=== PATIENT | male | born 1950 | race Caucasian/White ===

== ENCOUNTER 2017-01-17 11:13 | Inpatient (IN) | payer OTHER, MEDICARE ==
[~2017-01-17] VITALS: Ht 177.8 cm; Wt 99.1 kg
[~2017-01-17 11:13] MED LIST: ABILIFY 15MG15 MG PO; ABILIFY 2MG2 MG PO; ABILIFY 5MG5 MG PO; ADVAIR 500-501 EACH INH; ADVAIR DISKUS 21 DSK INH; ALBUTEROL 3 ML3 ML INH; AMLODIPINE10 MG PO; ASPIRIN EC325 MG PO; ATORVASTATIN CA10 MG PO; ATORVASTATIN CA40 MG PO; ATROVENT 0.02%2.5 ML INH; CEFTIN500 MG PO; CLOPIDOGREL75 MG PO; COLACE100 MG PO; DESYREL50 MG PO; DURAGESIC50 MCG TOP; EFFEXOR XR150 MG PO; EFFEXOR-XR150 MG PO; FENTANYL TR75 MCG/HR TOP; FLEXERIL10 MG PO; FUROSEMIDE40 M1 PO; FUROSEMIDE40 MG PO; ISOSORBIDE MONO60 MG PO; LASIX40 MG PO; LEADER NIC14 MG/24 H TOP; LIPITOR 10MG10 MG PO; LYRICA150 MG PO; METHOCARBAMOL750 MG PO; METOPROLOL TAR100 MG PO; MINIPRESS2 MG PO; MIRTAZAPINE15 MG PO; MOTRIN 600 MG600 MG PO; MOXIFLOXACIN H400 M1 PO; NEURONTIN400 MG PO; NEXIUM 40MG40 MG PO; NEXIUM40 M1 PO; NITROGLYCERIN0.4 M1 SL; NITROSTAT0.4 MG PO; NOVAPLUS FE75 MCG/HR TOP; OXCARBAZEPINE600 MG PO; PERCOCET 325 MG1 TA2 PO; PERCOCET 325 MG1 TAB PO; PERCOCET 5-3251 EACH PO; PERPHENAZINE4 MG PO; PRAZOSIN HCL2 MG PO; PREDNISONE 20MG20 MG PO; PREDNISONE10 MG PO; PROAIR HFA0.09 MG/Ac INH; RANEXA 500MG500 MG PO; RANEXA500 M1 PO; REMERON 7.5MG7.5 MG PO; ROBAXIN-750750 MG PO; SYMBICORT 160/41 PUF INH; TAMIFLU 75MG75 MG PO; TAMSULOSIN HCL0.4 M1 PO; TAMSULOSIN HYD0.4 MG PO; TRAZODONE50 MG PO; TRILEPTAL 150M150 MG PO; TRILEPTAL600 MG PO; VENLAFAXINE H37.5 M1 PO; VENLAFAXINE HYD75 M1 PO
[2017-01-17 12:24] LABS: ABSOLUTE BASOPHIL COUNT 0.1 /CUMM (0.0-0.2); ABSOLUTE EOSINOPHIL COUNT 0.2 /CUMM (0.0-0.7); ABSOLUTE GRANULOCYTE CT 5.1 /CUMM (1.4-6.5); ABSOLUTE LYMPH COUNT 1.5 /CUMM (1.2-3.4); ABSOLUTE MONOCYTE COUNT 0.6 /CUMM (0.10-0.60); BASOPHIL % 0.7 % (0.0-2.0); EOSINOPHIL % 2.2 % (0-5); GRANULOCYTE % 68.8 % (42.2-75.2); HEMATOCRIT 35.8 % (42-52); MEAN CORPUSCULAR HGB 29.5 PG (27.0-31.0); MEAN CORPUSCULAR HGB CONC 33.2 G/DL (33.0-37.0); MEAN CORPUSCULAR VOLUME 88.9 FL (80.0-94.0); MEAN PLATELET VOLUME 6.7 FL (7.4-10.4); PLATELET COUNT 273 /CUMM (130-400); RBC DISTRIBUTION WIDTH 15.6 % (11.5-14.5); RED BLOOD CELL CT 4.03 /CUMM (4.70-6.10); WHITE BLOOD CELL COUNT 7.4 /CUMM (4.8-10.8)
--- NOTE | 2017-01-17 14:08 | History & Physical ---
HAY MORELAND 01/17/17 1408: General Information and HPI History of Present Illness: A 65-year-old righ-headed man with Hx of CVA or recurrent episodes LOC/syncope , NV with 7 stent, s/p pacemaker, HFpEF of 55% was BIB his family for multiple syncopal episodes. In 2014, patient was admitted ta for the same CC and after extenssive cardio-neurologic workup discharged home w/o any particular diagnosis for his recurrent faiting spells. By that time, repeat Echo and EEG was obtained which ruled against structural heart disease and epileptiform brain activity, respectively. According to patient since his discharge in 2014 he has been having, on average, 3-4 episode of LOC similar to what he had in 2015 up until Thursday when he experienced a sudden change in frequency, characteristic and accompanying symptoms of his LOC spells. According to patient wince Thursday he developed a severe headache at the base of his skull, constant, radiates to both sides of his head, pain is thrubbing and sharp, he mentiones photophobia, but denies N/V, diplopia, weakness and numbness. However, patient patient mentioned that his tongue is heavier than usual and he has hard time controling his tongue. Patient also reports episodes of paroxysmal non-positional dizziness ( room spins around his head) that lasy up to 30 minutes and according to patient accompaned his new onset headache and unpleasant change in his status. Each syncopal episode lasts about 1min-1min 30sec, patient mentiones that he feels tired and confused for < 1-2 min after gaining counsiousness. Patient denies any tongue bite, bladder/bowel incontinence. I spoke to daughter as well, primary patient care. Carolina told me how the frequency of his black outs has gotten worse. She also mentined that each syncopal episode preceded by worsening of his constant headache (from 5 to 10 in pain scale), slurring of his speech. Patient denies any chest pain, palpitation, SOB, vomitting and diarrhea, denies any fever, shaking chills, recent travel, sick contact, ear pain and decreased hearing. He has been constipated for a the past few days and had not been eating /drinking properly. On patient was seen in ED. According to daughter he was given dilaudid IV and send home on 2 days supplys of po dilaudid. Pain meds seems to reduced the pain but made him drowsy and had no effect on LOC episodes. Of note, his other medical issues are : chronic back pain, anxiety/PTSD, depression, psychosis, BPH , history of MRSA infection 2000. patient lost his follow up visits with psych due to insurance issues and that forced him to stop his medication. Heavy smoker 1.5PPD X30 years; leaves with daughter; needs help with finance and shopping; walks independently. Allergies/Medications Allergies: Coded Allergies: adhesive (Intermediate, SKIN IRRITATION FROM ADHESIVE TAPE 11/01/15) clonazepam (Intermediate, AGITATION 11/01/15) fluoxetine (Intermediate, AGITATED 11/01/15) lithium (Intermediate, BODY EDEMA 11/01/15) zolpidem (Intermediate, AGITATION 11/01/15) Compliance With Home Meds: GOOD Past History Travel History Traveled to [place] past 21 day No Medical History Neurological: CVA, TIA, LIGHTHEADEDNESS HX EENT: hearing loss Cardiovascular: CHF, diastolic CHF (also permanent pacemaker), hypertension, hyperlipidemia, myocardial infarction, NSTEMI, syncope, 2 NV 2010 BOTH, 7 STENTS Respiratory: COPD, emphysema Gastrointestinal: NONE Hepatic: hepatitis C, HEPAC -untreated Renal: NONE Musculoskeletal: chronic back pain, disk herniation, RUPTURED DISK Psychiatric: alcohol dependence (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 MOTHER (NV at age 61). FATHER (NV at age 50). Relation not specified for: FH: myocardial infarction Psychosocial History Where do you live? Home Services at Home: None ETOH Use: alcoholic, FORMER ALCOHOLIC Illicit Drug Use: denies illicit drug use Functional Ability ADLs Independent: dressing, eating, toileting, bathing. Ambulation: independent IADLs Independent: shopping, housework, finances, food prep, telephone, transportation , medication admin. Review of Systems Review of Systems Constitutional: Reports: see HPI. Denies: chills, diaphoresis, fever, malaise, weakness, unexplained weight loss. EENTM: Reports: see HPI. Cardiovascular: Reports: see HPI. Respiratory: Reports: see HPI. GI: Reports: see HPI, constipation, distention. Denies: abdominal pain, bloating, diarrhea, bowel incontinence, melena, nausea, bloody stool, changes in stool, vomiting, steatorrhea. Genitourinary: Reports: no symptoms. Musculoskeletal: Reports: no symptoms, see HPI, back pain. Skin: Reports: see HPI. Neurological/Psychological: Reports: anxiety, depressed, dementia, headache, tremors, other. All Other Systems: Reviewed and Negative Exam & Diagnostic Data Last 24 Hrs of Vital Signs/I&O Vital Signs Date Time Temp Pulse Resp B/P B/P Pulse O2 O2 Flow FiO2 Mean Ox Delivery Rate 01/17 1447 98.0 95 18 148/86 95 Room Air 01/17 1316 98.7 99 20 150/94 94 01/17 1210 Room Air 01/17 1129 98.3 89 18 142/77 100 Room Air Intake & Output 01/17 1600 01/17 0800 01/17 0000 Intake Total Output Total Balance Patient 210 lb Weight Weight Reported by Patient Measurement Method Physical Exam General Appearance Alert, Oriented X3, Cooperative, Mild Distress Skin No Rashes, No Breakdown, No Significant Lesion Skin Temp/Moisture Exam: Warm/Dry HEENT PERRLA, MM is dry, no nysthagmus, pupils slightly constricted Neck very limited ROM , spinal bony process tenderness , paraspinal muscle tenderness Lymphatic Axillary nl, Cervical nl Cardiovascular Normal S1, Normal S2, No Murmurs Lungs Clear to Auscultation, Normal Air Movement Abdomen distended, no tenderness , hypoactive bs Neurological Strength at 5/5 X4 Ext, Normal Tone, Cranial Nerves 3-12 NL, Reflexes 2+, CN grossly noraml , no nystagmus , cogwweel rigidity Extremities +2 pitting edema b/l, severe arthritis Vascular Normal Pulses, Pulses Symmetrical Body Front and Back (Adult) 1) severe pain 2) severe pain and tenderness on spinal process Last 24 Hrs of Labs/Angel: Laboratory Tests 01/17/17 1222: Urinalysis LIGHT H, Urine Color YEL, Urine Clarity CLEAR, Urine pH 6.0, Ur Specific [place] 1.015, Urine Protein TRACE H, Urine Ketones NEG, Urine Nitrite NEG, Urine Bilirubin NEG, Urine Urobilinogen 0.2, Ur Leukocyte Esterase NEG, Ur Microscopic SEDIMENT EXAMINED, Urine RBC 1-3, Urine WBC 1-3 H, Ur Epithelial Cells RARE, Urine Bacteria RARE H, Urine Mucus RARE, Urine Hemoglobin NEG, Urine Glucose NEG 01/17/17 1207: Anion Gap 14, Estimated GFR > 60, BUN/Creatinine Ratio 6.7 L, Glucose 94, Calcium 8.7, Magnesium 1.9, Total Bilirubin 0.6, AST 88 H, ALT 69, Alkaline Phosphatase 61, Total Protein 6.8, Albumin 3.8, Globulin 3.0, Albumin/Globulin Ratio 1.3, CBC w Diff NO MAN DIFF REQ, RBC 4.03 L, MCV 88.9, MCH 29.5, RDW 15.6 H, MPV 6.7 L, Gran % 68.8, Lymphocytes % 20.6, Monocytes % 7.7, Eosinophils % 2.2, Basophils % 0.7, Absolute Granulocytes 5.1, Absolute Lymphocytes 1.5, Absolute Monocytes 0.6, Absolute Eosinophils 0.2, Absolute Basophils 0.1, PUBS MCHC 33.2 Assessment/Plan Assessment: 66 years old man with extenssive cardio-neuro Hx, multiple psychaitric problems and severe chronic pain was admitted for worseinng of his recurrent syncopal episode. Perinent data: K: 2.8 Mg :1.9 Trop and EKG: pending Last Carotid doppler in 2012 for syncope and slurred speach: Widely patent carotid systems bilaterally without evidence of hemodynamically significant stenosis both on 2 -dimensional imaging and spectral analysis. List of active problems and plan # recurrent syncope: Cause of syncope could be associated to neurocardiogenic: e.g vasovagal secondary to intensified MSC pain in this patient. Cardiogenic: Laurent/Tachy arrhythmias: this patient has hx of CAD and NV and pacemaker placement, which makes arrhythmia less likely. He has sevre hypokalemia that could cause arrhthmia but having a pacemaker is making it less likely. Additionly, post-syncopal fatigue and confusion is not a common presentation for arrhythmias that tends to be paroxysmal and w/o post-syncopal fatigue. However, ACS (NV ) needs to be R/O and we will try to introgate the pacemaker to effectively R/O any pacemaker dysfuction. Orthostatic: in the setting of poor oral intake (less likely) or maybe degrees of autonomic dysfunction in the setting of parkinson's dementia ( gentle hydration and check orthostatic change). Neurologic causes: patient has new onset headache ( suspisious for complex migraine) and also new onset prolonged, non-positional, dizziness and heaviness of his tongue and ??? slurred speach ( neuro exam was unremarkable, but vertebro-basilar insufficiency secondary to arthritic joint damage in the neck is a remote but possible cause). Last but least, psychogenic and polypharmacy possible misc. causes (patient stopped his dep/psych meds 6 month ago; has been receiving high doses of opioids since thursday). * admit to tele; continous heart monitor * Obtain Trop and stat EKG * Head/neck CT w/o IV contrast SALVADOR and if it was not conclussive please consider CTA of the H&N to asses vertebrobasilar circulation * Consult neuro in the am * Consult Psych in the am * Fall percussion * Replete K; repeat labs at 6 pm * Contac metronic for pacemaker introgation #COPD- stable. TRC round the clock. Continue Advair. #CAD- does have occasional anginal symptoms. apears stable. Plan: Continue current meds including Nitro SL 0.4 PRN, isosorbide and metoprolol. Ranexa was held. This medication has black box warning inthe setting of faint/ syncopal episodes. #CHF- HFpEF of >55%. On Lasix. has LE edema. Plan: continue Lasix. Ristrict I/O. Heart healthy diet. Daily weight. #H/O CVA/TIA ??? Plan: Continue Plavix & ASA and Atorvastatin. Plan: Continue Atorvastatin. #Chronic Pain- is Lyrica/Fentanyl Plan: Continue pain meds and monitor.avoid narcotics/hypnotics as much as possible. #BPH- on Tamsulosin. Plan: Continue Tamsulosin. #HTN- on Amlodipine & Metoprolol. BP in range. Plan: Continue Amlodipine & Metoprolol. Follow BP. #?Depression/Anxiety/?Psychosis- reaportadely patient has been off of his depression/psych/PTSD medication for the past 6 months. plan: obtain psych consult in the am. continue Trazodone 75 mg at bedtime, DNRDNI As Ranked By This Provider Problem List: 1. COPD 2. CHRONIC PAIN SYNDROME 3. ANXIETY DISORDER 4. BACK PAIN 5. MULTIPLE BACK SURGERIES 6. Recurrent syncope 7. DNR (do not resuscitate) 8. DNI (do not intubate) 9. Transient loss of consciousness 10. Neck pain Core Measures/Miscellaneous Acute Coronary Syndrome ACS Diagnosis: No Cerebrovascular Accident CVA/TIA Diagnosis: No Congestive Heart Failure CHF Diagnosis: No Venous Thromboembolism VTE Risk Factors: Acute medical illness, Age > 40, CHF or Resp failure, Immobility, paresis [facility] prophylaxis d/t: No contraindications No VTE Pharm Prophylaxis d/t: No contraindications VTE Diagnosis: No VTE Type: NONE VTE Confirmed by (Test): NONE Severe Sepsis Severe Sepsis Present: No Septic Shock Septic Shock Present: No Miscellaneous Documentation Attending Case Discussed With: MCKENNA KATZ MD Primary Care Physician: MARCIE COREA MD 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 (Ecotrin) 325 MG TAB 1 TAB PO DAILY HEART HEALTH (Reported) Atorvastatin (Atorvastatin Calcium) 10 MG TAB 1 TAB PO 1700 CHOLESTEROL ( Reported) CLOPIDOGREL BISULFATE (Clopidogrel) 75 MG TABLET 1 TAB PO DAILY Heart ( Reported) Diazepam (Valium) 2 MG TABLET 1 TAB PO TID tardive dyskinesia Esomeprazole (Nexium) 40 MG CAPSULE.DR 1 CAP PO DAILY GI (Reported) Fentanyl 75 MCG/HOUR PATCH.TD72 1 PAT TOP Q3D pain (Reported) Fluticasone/Salmeterol (Advair 500-50 Diskus) 500 MCG-50 MCG/DOSE BLST.W.DEV 1 PUF INH BID BREATHING PROBLEMS (Reported) Furosemide 40 MG TABLET 10 MG PO DAILY WATER PILL (Reported) Metoprolol Tartrate 100 MG TABLET 1 TAB PO BID Heart (Reported) Nitroglycerin 0.4 MG TAB.SUBL 1 TAB SL AD PRN HEART (Reported) 1st sign of attack; may repeat every 5 minutes until relief; if pain persists after 3 tablets in 15 minutes, prompt medical att Pregabalin (Lyrica) 150 MG CAPSULE 1 CAP PO BID Neuropathy Ranolazine (Ranexa) 500 MG TAB.ER.12H 1 TAB PO BID HEART (Reported) Tamsulosin HCl 0.4 MG CAP.ER.24H 1 CAP PO DAILY BPH (Reported) Trazodone HCl 50 MG TABLET 75 MG PO QPM insomnia Attending MD Review Statement Attending Statement Attending MD Statement: examined this patient, discuss w/resident/PA/PLANT SAFETY ENGINEER, agreed w/resident/PA/PLANT SAFETY ENGINEER, reviewed EMR data (avail), discussed with nursing Attending Assessment/Plan: Please see my separate attending note for more details. Agree with above.
--- NOTE | 2017-01-17 14:12 | RADIOLOGY REPORT ---
EXAMINATION: XR PORTABLE CHEST CLINICAL INFORMATION: Shortness of breath COMPARISON: 11/01/2015 x-ray TECHNIQUE: Portable frontal view of the chest was obtained. FINDINGS: Hypoventilatory exam. There is mild cardiomegaly. Pulmonary venous congestion and pulmonary interstitial edema noted. There is a left subclavian approach dual lead cardiac pacer with leads projecting over the right atrium and right ventricle, unchanged in position since 11/01/2015 chest x-ray. The right infrahilar opacity would represent exaggerated view of bronchovascular markings partly due to low lung volumes in this hypoventilatory exam. No pleural effusions or pneumothorax. IMPRESSION: Pulmonary venous congestion and mild interstitial edema. Right infrahilar opacity, likely exaggerated bronchovascular markings. Consider follow-up standard PA and lateral full inspiratory chest x-ray evaluation.
--- NOTE | 2017-01-17 14:17 | RADIOLOGY REPORT ---
EXAMINATION: XR CERVICAL SPINE CLINICAL INFORMATION: Fall. Neck pain. COMPARISON: Cervical spine CT 08/05/2016. TECHNIQUE: Three views of the cervical spine were obtained. FINDINGS: C7-T1 is suboptimally imaged on the lateral projections. No fracture or dislocation demonstrated. No prevertebral soft tissue swelling. There is straightening and slight reversal of normal cervical lordosis, which is a nonspecific finding. No evidence of traumatic spondylolisthesis. No widening of the atlantooccipital or atlantoaxial relations. Multilevel degenerative endplate changes with disc space narrowing. Multilevel facet arthropathy. Partially visualized left pectoral cardiac device. IMPRESSION: 1. No acute cervical spine pathology demonstrated. 2. C7-T1 is suboptimally imaged on the lateral projection secondary to overlying soft tissue.
--- NOTE | 2017-01-17 14:34 | ED GENERAL ADULT ---
History of Present Illness General Chief Complaint: General Adult Stated Complaint: SYNCOPE Source: patient, family Exam Limitations: no limitations Vital Signs & Intake/Output Vital Signs & Intake/Output Vital Signs Date Time Temp Pulse Resp B/P B/P Pulse O2 O2 Flow FiO2 Mean Ox Delivery Rate 01/17 1447 98.0 95 18 148/86 95 Room Air 01/17 1316 98.7 99 20 150/94 94 01/17 1210 Room Air 01/17 1129 98.3 89 18 142/77 100 Room Air Allergies Coded Allergies: adhesive (Intermediate, SKIN IRRITATION FROM ADHESIVE TAPE 11/01/15) clonazepam (Intermediate, AGITATION 11/01/15) fluoxetine (Intermediate, AGITATED 11/01/15) lithium (Intermediate, BODY EDEMA 11/01/15) zolpidem (Intermediate, AGITATION 11/01/15) Reconcile Medications Albuterol Sulfate (Proair Hfa) 0.09 MG/Actuation YENNY 2 PUFF INH PRN COPD ( Reported) Amlodipine Besylate (Amlodipine) 10 MG TAB 1 TAB PO DAILY BP (Reported) Aspirin E.c. (Ecotrin) 325 MG TAB 1 TAB PO DAILY HEART HEALTH (Reported) Atorvastatin (Atorvastatin Calcium) 10 MG TAB 1 TAB PO 1700 CHOLESTEROL ( Reported) CLOPIDOGREL BISULFATE (Clopidogrel) 75 MG TABLET 1 TAB PO DAILY Heart ( Reported) Esomeprazole (Nexium) 40 MG CAPSULE.DR 1 CAP PO DAILY GI (Reported) Fentanyl 75 MCG/HOUR PATCH.TD72 1 PAT TOP Q3D Chronic pain Fluticasone/Salmeterol (Advair 500-50 Diskus) 500 MCG-50 MCG/DOSE BLST.W.DEV 1 PUF INH BID BREATHING PROBLEMS (Reported) Furosemide 40 MG TABLET 10 MG PO DAILY WATER PILL (Reported) Metoprolol Tartrate 100 MG TABLET 1 TAB PO BID Heart (Reported) Nitroglycerin 0.4 MG TAB.SUBL 1 TAB SL AD PRN HEART (Reported) 1st sign of attack; may repeat every 5 minutes until relief; if pain persists after 3 tablets in 15 minutes, prompt medical att Ranolazine (Ranexa) 500 MG TAB.ER.12H 1 TAB PO BID HEART (Reported) Tamsulosin HCl 0.4 MG CAP.ER.24H 1 CAP PO DAILY BPH (Reported) Trazodone HCl 50 MG TABLET 75 MG PO QPM insomnia Triage Note: PT TO ED FOR MULTIPLE COMPLAINTS WITH DAUGHTER, PER DAUGHTER PT HAS BEEN HAVING PROGRESSIVELY WORSE LEG WEAKNESS, GENERALIZED BODY PAIN, QUESTIONABLE SYNCOPAL EPISODES AT HOME, INTERMITTENT EPISODES OF SLURRED SPEECH - PER DAUGHTER SIMILAR EPISODES HAVE OCCURED PREVIOUSLY WITH "NO ANSWERS WHY". Triage Nurses Notes Reviewed? yes HPI: 66M PMH EXTENSIVE CARDIAC HISTORY, HISTORY OF SYNCOPE, PRESENTING WITH 1 WEEK OF GENERALIZED WEAKNESS, SEVERE INTRACTABLE NECK PAIN, RECURRENT FALLS AND MULTIPLE SYNCOPAL EPISODES. SYNCOPE OCCURS AT REST. NO HEAD INJURY OR TRAUMA. NO PRODROMAL SYNCOPAL SYMPTOMS. DENIES FEVER, CHILLS, CONFUSION, CHEST PAIN, SOB, ABDOMINAL PAIN, DIARRHEA, DYSURIA. USUALLY WALKS UNASSISTED OR WITH JUST A CANE BUT NOW REQUIRING ASSISTANCE WITH ALL AMBULATION, WITH GAIT INSTABILITY AND WEAKNESS. Past History Travel History Traveled to [place] past 21 day No Medical History Any Pertinent Medical History? see below for history Neurological: CVA, TIA, LIGHTHEADEDNESS HX EENT: hearing loss Cardiovascular: CHF, diastolic CHF (also permanent pacemaker), hypertension, hyperlipidemia, myocardial infarction, NSTEMI, syncope, 2 [place] 2011 BOTH, 7 STENTS Respiratory: COPD, emphysema Gastrointestinal: NONE Hepatic: hepatitis C, HEPAC -untreated Renal: NONE Musculoskeletal: chronic back pain, disk herniation, RUPTURED DISK Psychiatric: alcohol dependence (lapse 1 day REC THERAPIST-"years sober"), anxiety, chronic pain disorder, depression, opioid dependence (prescribed), PTSD (3 yrs in [facility]) Endocrine: NONE Blood Disorders: MRSA 2003 Cancer(s): NONE HIGH LEAD YARDER/Reproductive: ENLARGED PROSTATE History of MRSA: Yes History of VRE: No History of CDIFF: No Pneumonia Vaccine: 05/17/16 Surgical History Surgical History: non-contributory (8 soine surgeries, last 1997) Psychosocial History Who do you live with Daughter Services at Home None What is your primary language Angolan Tobacco Use: Current Daily Use Daily Tobacco Use Amount/Type: => 5 Cigarettes daily ETOH Use: alcoholic, FORMER ALCOHOLIC Illicit Drug Use: denies illicit drug use Family History Family History, If Any: BROTHER ( of [place], age 62). MOTHER ([place] at age 61). FATHER ([place] at age 50). Relation not specified for: FH: myocardial infarction Hx Contributory? No Review of Systems Review of Systems Constitutional: Reports: see HPI. EENTM: Reports: no symptoms. Respiratory: Reports: no symptoms. Cardiovascular: Reports: see HPI. GI: Reports: no symptoms. Genitourinary: Reports: no symptoms. Musculoskeletal: Reports: see HPI. Skin: Reports: no symptoms. Neurological/Psychological: Reports: see HPI. Hematologic/Endocrine: Reports: no symptoms. Immunologic/Allergic: Reports: no symptoms. All Other Systems: Reviewed and Negative Physical Exam Physical Exam General Appearance: well developed/nourished, mild distress, FACIAL TREMORS/TICS Head: atraumatic Ears, Nose, Throat: normal ENT inspection Neck: RANGE OF MOTION LIMITED BY PAIN. PARASPINAL TENDERNESS. Respiratory: normal breath sounds, no respiratory distress Cardiovascular: regular rate/rhythm Gastrointestinal: soft, non-tender Back: normal inspection, normal range of motion Extremities: normal inspection, normal range of motion Neurologic/Psych: UNSTEADY GAIT, NO MOTOR OR SENSORY DYSFUNCTION Core Measures ACS in differential dx? No CVA/TIA Diagnosis: No Severe Sepsis Present: No Septic Shock Present: No Progress Differential Diagnoses I considered the following diagnoses in my evaluation of the patient: CVA, MENINGITIS, FALL, SPINAL FRACTURE, DEMENTIA, PARKINSON'S Plan of Care: Orders Procedure Date/time Status Regular Diet 01/17 D Active BASIC ELECTROLYTES PLUS BUN&CR 01/17 1800 Active Vital Signs 01/17 1652 Active Teach/Educate 01/17 1652 Active Pain Treatment and Response 01/17 1652 Active Nutritional Intake, Monitor 01/17 1652 Active Isolation 01/17 1652 Active Patient Care Conference 01/17 1652 Active Activity/Ambulation 01/17 1652 Active Pathway - chart 01/17 1649 Active TROPONIN LEVEL 01/17 1636 Active Code Status 01/17 1636 Active TRC EVALUATION (GEN) 01/17 1411 Active Pathway - chart 01/17 1411 Active House Staff 01/17 1411 Active Code Status 01/17 1411 Complete Add-on Test (ER Only) 01/17 1346 Active Patient Data 01/17 1333 Active Intake & Output 01/17 1315 Active Admit to inpatient 01/17 1312 Active Code Status 01/17 1312 Complete PT Evaluate & Treat 01/17 1227 Active URINALYSIS 01/17 1209 Complete MAGNESIUM 01/17 1207 Complete COMPREHENSIVE METABOLIC PANEL 01/17 1200 Complete CBC WITHOUT DIFFERENTIAL 01/17 1200 Complete EKG 01/17 1121 Active MOBILITY GOAL STATUS 01/17 UNK Complete MOBILITY CURRENT STATUS 01/17 UNK Complete Gait Training, 15 Min 01/17 UNK Complete PT EVAL MOD COMPLEX 30 MIN 01/17 UNK Complete VTE Mechanical Prophylaxis 01/17 UNK Active Precautions 01/17 UNK Active EKG 01/17 UNK Active Current Medications Sig/Ludivina Start time Last Medication Dose Stop Time Status Admin Aspirin Buffered 325 MG DAILY 01/18 1000 AC (Ecotrin) Clopidogrel Bisulfate 75 MG DAILY 01/18 1000 AC (Plavix) Isosorbide 60 MG DAILY 01/18 1000 AC Mononitrate (Imdur) Omeprazole 40 MG DAILY AC 01/18 0700 AC (Prilosec) Budesonide/ 2 PUF BID 01/17 2200 AC Formoterol Fumarate (Symbicort) Metoprolol Tartrate 100 MG BID 01/17 2200 AC (Lopressor) Senna/Docusate Sodium 1 TAB AT BEDTIME 01/17 2200 AC (Senokot S) Diclofenac Sodium 0 4 TIMES/DAY 01/17 1800 UNVr (Voltaren 1% Gel) Acetaminophen 650 MG Q6P PRN 01/17 1700 AC (Tylenol) Atorvastatin Calcium 10 MG 1700 01/17 1700 AC (Lipitor) Bisacodyl 10 MG Q12P PRN 01/17 1700 AC (Dulcolax Supp) Docusate Sodium 100 MG DAILY NEEDED PRN 01/17 1700 AC (Colace) Acetaminophen 1,000 MG Q8 01/17 1648 UNVr (Ofirmev) Nitroglycerin 0.4 MG Q 5 MINUTES X 3 DO.. 01/17 1630 AC (Nitrostat) Tamsulosin HCl 0.4 MG DAILY 01/17 1619 AC (Flomax) Albuterol Sulfate 3 ML Q4H PRN 01/17 1615 AC (Proventil) Amlodipine Besylate 10 MG DAILY 01/17 1615 AC (Norvasc) Potassium Chloride 40 MEQ .Q6H40M 01/17 1415 CAN (KCl 40MEQ in NS 1000ML) Sodium Chloride 1,000 ML (Normal Saline 0.9%) Potassium Chloride 40 MEQ Q6H 01/17 1415 AC 01/17 (KCl 40MEQ in NS 1440 1000ML) Sodium Chloride 1,000 ML (Normal Saline 0.9%) Potassium Chloride 40 MEQ DAILY 01/17 1412 AC 01/17 (K-Dur) 1429 Heparin Sodium 5,000 UNIT Q8 01/17 1411 AC (Porcine) Laboratory Tests 01/17/17 1222: Urinalysis LIGHT H, Urine Color YEL, Urine Clarity CLEAR, Urine pH 6.0, Ur Specific [place] 1.015, Urine Protein TRACE H, Urine Ketones NEG, Urine Nitrite NEG, Urine Bilirubin NEG, Urine Urobilinogen 0.2, Ur Leukocyte Esterase NEG, Ur Microscopic SEDIMENT EXAMINED, Urine RBC 1-3, Urine WBC 1-3 H, Ur Epithelial Cells RARE, Urine Bacteria RARE H, Urine Mucus RARE, Urine Hemoglobin NEG, Urine Glucose NEG 01/17/17 1207: Anion Gap 14, Estimated GFR > 60, BUN/Creatinine Ratio 6.7 L, Glucose 94, Calcium 8.7, Magnesium 1.9, Total Bilirubin 0.6, AST 88 H, ALT 69, Alkaline Phosphatase 61, Total Protein 6.8, Albumin 3.8, Globulin 3.0, Albumin/Globulin Ratio 1.3, CBC w Diff NO MAN DIFF REQ, RBC 4.03 L, MCV 88.9, MCH 29.5, RDW 15.6 H, MPV 6.7 L, Gran % 68.8, Lymphocytes % 20.6, Monocytes % 7.7, Eosinophils % 2.2, Basophils % 0.7, Absolute Granulocytes 5.1, Absolute Lymphocytes 1.5, Absolute Monocytes 0.6, Absolute Eosinophils 0.2, Absolute Basophils 0.1, PUBS MCHC 33.2 66M PMH CAD, DEMENTIA PRESENTING WITH UNSTEADY GAIT, RECURRENT FALLS, UNEXPLAINED SYNCOPE, AND INTRACTABLE RIGHT KNEE AND NECK PAIN. PATIENT IS UNSTEADY AND REQUIRES ASSISTANCE WITH AMBULATION, HAS 15 STEPS AT HOME, AND MOVEMENT IS LIMITED BY WEAKNESS AND PAIN. WILL ADMIT TO INPATIENT MEDICINE FOR PHYSICAL THERAPY, SYNCOPAL WORKUP, CARDIOLOGY CONSULT, NEUROLOGY CONSULT, TELEMETRY MONITORING, REPLETION OF HYPOKALEMIA. ([place]) Diagnostic Imaging: Viewed by Me: Radiology Read. Discussed w/RAD: Radiology Read. Radiology Impression: PATIENT: TERRELL DUBON PRESENT AGE: 66 PATIENT ACCOUNT NO: [id number] : 50 LOCATION: [facility] ORDERING PHYSICIAN: NE NEELY MD SERVICE DATE: 01/17/17 EXAM TYPE : RAD - XRY-CERVICAL SPINE TRAUMA EXAMINATION: XR CERVICAL SPINE CLINICAL INFORMATION: Fall. Neck pain. COMPARISON: Cervical spine CT 08/05/2016. TECHNIQUE: Three views of the cervical spine were obtained. FINDINGS: C7-T1 is suboptimally imaged on the lateral projections. No fracture or dislocation demonstrated. No prevertebral soft tissue swelling. There is straightening and slight reversal of normal cervical lordosis, which is a nonspecific finding. No evidence of traumatic spondylolisthesis. No widening of the atlantooccipital or atlantoaxial relations. Multilevel degenerative endplate changes with disc space narrowing. Multilevel facet arthropathy. Partially visualized left pectoral cardiac device. IMPRESSION: 1. No acute cervical spine pathology demonstrated. 2. C7-T1 is suboptimally imaged on the lateral projection secondary to overlying soft tissue. DICTATED BY: TERRELL JORGENSEN MD DATE/TIME DICTATED:01/17/171403 MICA LAMINATING MACHINE FEEDER:JACQUELIN DATE/TIME TRANSCRIBED:01/17/171403 CONFIDENTIAL, DO NOT COPY WITHOUT APPROPRIATE AUTHORIZATION. <Electronically signed in Other Vendor System> SIGNED BY: TERRELL JORGENSEN MD 01/17/17 1417 CXR Impression: PATIENT: TERRELL DUBON PRESENT AGE : 66 PATIENT ACCOUNT NO: [id number] : 50 LOCATION: [facility] ORDERING PHYSICIAN: NE NEELY MD SERVICE DATE: 01/17/17 EXAM TYPE: RAD - XRY-PORTABLE CHEST XRAY EXAMINATION: XR PORTABLE CHEST CLINICAL INFORMATION: Shortness of breath COMPARISON: 11/01/2015 x-ray TECHNIQUE: Portable frontal view of the chest was obtained. FINDINGS: Hypoventilatory exam. There is mild cardiomegaly. Pulmonary venous congestion and pulmonary interstitial edema noted. There is a left subclavian approach dual lead cardiac pacer with leads projecting over the right atrium and right ventricle, unchanged in position since 11/01/2015 chest x-ray. The right infrahilar opacity would represent exaggerated view of bronchovascular markings partly due to low lung volumes in this hypoventilatory exam. No pleural effusions or pneumothorax. IMPRESSION: Pulmonary venous congestion and mild interstitial edema. Right infrahilar opacity, likely exaggerated bronchovascular markings. Consider follow-up standard PA and lateral full inspiratory chest x-ray evaluation. DICTATED BY: ALFONSO BUTT MD DATE/TIME DICTATED:01/17/171405 MICA LAMINATING MACHINE FEEDER:JACQUELIN DATE/TIME TRANSCRIBED:01/17/171405 CONFIDENTIAL, DO NOT COPY WITHOUT APPROPRIATE AUTHORIZATION. <Electronically signed in Other Vendor System> SIGNED BY: ALFONSO BUTT MD 01/17/17 1412 Initial ED EKG: AFIB, no ST T wave changes Prior EKG: unchanged Departure Departure Time of Disposition: 1432 Disposition: STILL A PATIENT Condition: Stable Clinical Impression Primary Impression: Unsteady gait Secondary Impressions: Hypokalemia, Neck pain, Recurrent falls, Syncope Referrals: MARCIE COREA MD (PCP/Family) Departure Forms: Customer Survey General Discharge Information Prescriptions: Current Visit Scripts Trazodone HCl 75 MG PO QPM #30 TAB Fentanyl 1 PAT TOP Q3D #10 PAT Critical Care Note Critical Care Note Critical Care Time: non-applicable
[2017-01-17] MEDS ORDERED: TRAZODONE HCL50 M1 PO (16:23)
[2017-01-17] MEDS ORDERED: FENTANYL1 EAC4 TOP (16:23)
--- NOTE | 2017-01-17 18:26 | Admission Certification ---
Admission Certification Certification Statement - As attending physician, I certify that at the time of - admission, based on clinical presentation, severity of - symptoms, need for further diagnostic testing and - therapeutic interventions, and risk of adverse outcomes - without in-hospital treatment, in my clinical assessment, - this patient requires an acute hospital stay for a minimum - of two nights or longer. I have also considered psychsocial - factors such as support system, advanced age, financial - issues, cognitive issues, and failed out-patient treatments, - past re-admission history, safety of patient, and lack of - compliance as applicable. Specific rationale supporting this admission is: recurrent falls and syncope.
--- NOTE | 2017-01-17 18:40 | PN- Att Addend ---
Attending MD Review Statement Attending Statement Attending MD Statement: examined this patient, discuss w/resident/PA/EQUIPMENT OPERATOR WAGE HAND, agreed w/resident/PA/EQUIPMENT OPERATOR WAGE HAND, reviewed EMR data (avail), discussed w/nursing Attending Assessment/Plan: 66-year-old male with past medical history of coronary artery disease and CVA few years ago presented to the emergency room with chief complaint of recurrent falls and syncope especially worse over the last 1 week. Patient has been having these syncopal episodes which he calls like blackouts about 5 times a day since this Thursday. Patient went to the [facility] on for neck pain and headache and right leg pain and was given pain medication and discharged home on Dilaudid by mouth. Patient also has tardive dyskinesia symptoms for the last 2 days. Patient currently is not on any psych meds and I am not sure about fevers given any medications like Reglan over the [facility]. Patient currently is living with his daughter in [place]. From his description of his episode of blackout it looks more like orthostatic syncope likely secondary to autonomic dysfunction. Patient has some tremors both at rest and with intention on exam. Patient also has some cogwheel type rigidity on exam. Etiology could be broad - possible differential could be Parkinson's disease with autonomic dysfunction, lewy body dementia with autonomic dysfunction or drug-induced. Other disorders that could be possible or Shy-Drager syndrome but appear less likely. We will get a neurology consult and will also get a CT of the head. We will replace his electrolytes his potassium is low at 2.8. We will also do a pacemaker interrogation and will also check for orthostatic blood pressure.
[2017-01-18] VITALS: BP 132/82
[2017-01-18 00:14] VITALS: BP 132/82
[2017-01-18 08:23] VITALS: BP 132/74
--- NOTE | 2017-01-18 09:03 | PN- Housestaff ---
Subjective Follow-up For: recurrent syncope Neck/head pain Complaints: complains of uncontrolable tongue movement Tele-Events Since Last Visit: NSRR 62-90 b/min Subjective: patient was visited and examined. He complains of Head and neck pain. He has not had any LOC since yesterday. Slept well. Asks for her lyrica to be resumed as it helps with the pain. Review of Systems Constitutional: Reports: see HPI. Cardiovascular: Reports: no symptoms. Respiratory: Reports: see HPI. Gastrointestinal: Reports: see HPI. Genitourinary: Reports: see HPI. Musculoskeletal: Reports: see HPI, back pain, neck pain. Objective Last 24 Hrs of Vital Signs/I&O Vital Signs Date Time Temp Pulse Resp B/P B/P Pulse O2 O2 Flow FiO2 Mean Ox Delivery Rate 01/18 1057 95 Room Air 01/18 0838 140/80 01/18 0838 140/80 01/18 0838 140/80 01/18 0838 140/80 / 0823 98.3 83 20 132/74 94 Nasal 2.0L Cannula 01/18 0726 94 Room Air 01/18 0014 98.9 69 22 132/82 94 Nasal 2.0L Cannula / 0000 98.9 69 22 132/82 06/03 2341 Nasal 2.0L Cannula 01/17 2155 20 94 Room Air 06 2145 100 148/86 06/03 2140 20 94 Nasal 2.0L Cannula / 2130 22 88 Room Air 01/17 1820 108 148/86 06/03 1820 108 148/86 06/03 1447 98.0 95 18 148/86 95 Room Air /03 1316 98.7 99 20 150/94 94 Intake & Output /04 1600 06/04 0800 /04 0000 Intake Total 440 Output Total 1200 Balance -760 Intake, IV 200 Intake, Oral 240 Output, Urine 1200 Physical Exam General Appearance: Alert, Oriented X3, Cooperative, No Acute Distress Skin: No Rashes, No Breakdown, No Significant Lesion HEENT: Atraumatic, PERRLA, EOMI Neck: No JVD Cardiovascular: Normal S1, Normal S2, No Murmurs Lungs: Clear to Auscultation, Normal Air Movement Abdomen: Soft, No Tenderness, No Hepatospenomegaly Neurological: Strength at 5/5 X4 Ext, Normal Tone, Sensation Intact, Cranial Nerves 3-12 NL Extremities: No Cyanosis, No Edema Current Medications: Current Medications Sig/Ludivina Start time Last Medication Dose Route Stop Time Status Admin Acetaminophen 650 MG Q6P PRN 01/18 0115 AC 01/18 PO 0114 Acetaminophen 650 MG Q6P PRN 01/17 1700 DC PO Acetaminophen 1,000 MG Q8 01/17 1648 DC 01/17 IV 1820 Albuterol Sulfate 3 ML TID 01/18 1000 AC 01/18 INH 1056 Albuterol Sulfate 3 ML Q4H PRN 01/17 1615 AC INH Amlodipine Besylate 10 MG DAILY 01/17 1615 AC 01/18 PO 0838 Aspirin Buffered 325 MG DAILY 01/18 1000 AC 01/18 PO 0838 Atorvastatin Calcium 10 MG 1700 01/17 1700 AC 01/17 PO 1820 Bisacodyl 10 MG Q12P PRN 01/17 1700 AC LA Budesonide/ 2 PUF BID 01/17 2200 AC 01/18 Formoterol Fumarate INH 0837 Clonazepam 0.5 MG DAILY 01/18 1049 AC 01/18 PO 01/25 1048 1241 Clopidogrel Bisulfate 75 MG DAILY 01/18 1000 AC 01/18 PO 0838 Docusate Sodium 100 MG DAILY NEEDED PRN 01/17 1700 AC PO Fentanyl Citrate 75 MCG Q3D 01/18 1000 AC 01/18 TOP 0837 Heparin Sodium 5,000 UNIT Q8 01/17 1411 AC 01/18 (Porcine) SC 0626 Isosorbide 60 MG DAILY 01/18 1000 AC 01/18 Mononitrate PO 0838 Methyl Salicylate 1 ELIANA 4 TIMES/DAY 01/17 1800 AC TOP Metoprolol Tartrate 100 MG BID 01/17 2200 AC 01/18 PO 0838 Nitroglycerin 0.4 MG Q 5 MINUTES X 3 DO.. 01/17 1630 AC SL Omeprazole 40 MG DAILY AC 01/18 0700 AC 01/18 PO 0625 Potassium Chloride 20 MEQ Q1 01/17 2100 DC PO 01/17 2201 Potassium Chloride 10 MEQ ONCE ONE 01/17 2100 DC /03 IV 01/17 2101 2258 Potassium Chloride 0 .STK-MED ONE 01/17 1431 DC PO Potassium Chloride 40 MEQ .Q6H40M 01/17 1415 CAN Sodium Chloride 1,000 ML IV Potassium Chloride 40 MEQ Q6H 01/17 1415 AC 01/17 Sodium Chloride 1,000 ML IV 1440 Potassium Chloride 40 MEQ DAILY 01/17 1412 AC 01/18 PO 0838 Pregabalin 150 MG BID 01/18 1232 AC 01/18 PO 1242 Senna/Docusate Sodium 1 TAB AT BEDTIME 01/17 2200 AC PO Tamsulosin HCl 0.4 MG DAILY 01/17 1619 AC 01/18 PO 0838 Tramadol HCl 50 MG ONCE ONE 01/18 0215 DC 01/18 PO 01/18 0216 0241 Trazodone HCl 75 MG AT BEDTIME NEED.. 01/18 0300 AC PO 01/19 0247 Last 24 Hrs of Lab/Angel Results Last 24 Hrs of Labs/Mics: Laboratory Tests 01/18/17 1055: Anion Gap 7, Estimated GFR > 60, BUN/Creatinine Ratio 8.0, Magnesium 2.1 01/18/17 0105: Troponin I 0.02 01/17/17 174: Troponin I Cancelled 01/17/17 174: Anion Gap 10, Estimated GFR > 60, BUN/Creatinine Ratio 5.0 L, Troponin I 0.02 Assessment/Plan Assessment: 66 years old man w/ extenssive psych, cardiac and neurologic Hx was admitted for worsening of her frequent LOC and frequent/ involuntiary movement of his tongue and severe neck and headache. Recurrent LOC- Orthostatic Vs are negative, CT of head and neck w/o contrast was negative for any herniated disk or siggestion of possible external pressure on vertebarl artery. Patient is awaiting neurology evaluation and psych eval. #protroding movement os his toungue, Protruding and twisting movements of the tongue, w/ smacking movements of the lips, w/ Bulging of the cheeks; repeatative Chewing movements. In the setting of involunt akynetic and dysckinesia and Hx of PO anti-psych meds in the past, TD is a possible diagnosis. Tremor could be related to Parkinson's disease but has been reported w/ TD. * Started on clonopin 05 mg po daily #hypokalemia- resolved #COPD- stable. TRC round the clock. Continue Advair. #CAD- does have occasional anginal symptoms. apears stable. Plan: Continue current meds including Nitro SL 0.4 PRN, isosorbide and metoprolol. Ranexa was held. This medication has black box warning inthe setting of faint/ syncopal episodes. #CHF- HFpEF of >55%. On Lasix. has LE edema. Plan: continue Lasix. Ristrict I/O. Heart healthy diet. Daily weight. #H/O CVA/TIA ??? Plan: Continue Plavix & ASA and Atorvastatin. Plan: Continue Atorvastatin. #Chronic Pain- is Lyrica/Fentanyl Plan: Continue pain meds and monitor.avoid narcotics/hypnotics as much as possible. #BPH- on Tamsulosin. Plan: Continue Tamsulosin. #HTN- on Amlodipine & Metoprolol. BP in range. Plan: Continue Amlodipine & Metoprolol. Follow BP. #?Depression/Anxiety/?Psychosis- reaportadely patient has been off of his depression/psych/PTSD medication for the past 6 months. plan: obtain psych consult in the am. continue Trazodone 75 mg at bedtime, DNRDNI NO labs for tomorrow Problem List: 1. COPD 2. GERD 3. ANXIETY DISORDER 4. Atypical chest pain 5. Neck pain 6. Recurrent falls Pain Ratin Pain Location: neck Pain Goal: Pain 4 or less Pain Plan: lyrica tylenol Tomorrow's Labs & Rationales: bep DVT/Prophylaxis: mechanical, pharmacological
--- NOTE | 2017-01-18 09:14 | CT SCAN REPORT ---
EXAMINATION: CT HEAD WITHOUT CONTRAST CT CERVICAL SPINE WITHOUT CONTRAST CLINICAL INFORMATION: Possible ischemic changes. Syncope. COMPARISON: Similar examination 08/05/2016. TECHNIQUE: Imaging was performed from the skull base to vertex without intravenous administration of contrast. In addition, helical noncontrast CT imaging was acquired through the cervical spine and source images were reviewed along with axial reconstructions and sagittal and coronal MPRs. Motion is present at the skull base. Total exam dose-length product 640 mGy-cm FINDINGS: HEAD: No intracranial mass, hemorrhage, or midline shift is visualized. Moderate patchy low attenuation in the centrum semiovale and to a lesser extent riggs radiata is similar to prior and consistent with chronic microvascular ischemic change. This is most prominent in the biparietal region. The ventricles and sulci are age-appropriate. No extra-axial collections are identified. The paranasal sinuses and mastoid air cells are well aerated. A mucous retention cyst is visualized in the left maxillary sinus. There is chronic opacity at the tip of the left mastoid air cells, similar to prior. CERVICAL SPINE: Levoscoliosis is seen at the cervicothoracic junction. There is no evidence of acute cervical spine fracture. Extensive multilevel degenerative changes are seen most prominent from C3 to T1 with disc narrowing and prominent disc osteophyte complex. Multilevel neural foraminal narrowing and facet arthropathy is present. No pre- or paravertebral soft tissue abnormality is identified. Limited assessment of the lung apices is unremarkable. Pacemaker partly visualized. IMPRESSION: 1. No acute intracranial pathology. Relatively extensive chronic microvascular changes persists. 2. No CT evidence of acute cervical spine fracture or traumatic subluxation. Severe multilevel degenerative changes.
[2017-01-18] MEDS ORDERED: LYRICA75 M1 PO (10:55)
--- NOTE | 2017-01-18 13:59 | PN- Att Addend ---
Attending MD Review Statement Attending Statement Attending MD Statement: examined this patient, discuss w/resident/PA/OFFICE ASSISTANCE, agreed w/resident/PA/OFFICE ASSISTANCE, reviewed EMR data (avail), discussed w/nursing Attending Assessment/Plan: Laboratory Tests 01/18/17 1055: Anion Gap 7, Estimated GFR > 60, BUN/Creatinine Ratio 8.0, Magnesium 2.1 01/18/17 0105: Troponin I 0.02 01/17/17 174: Troponin I Cancelled 01/17/17 174: Anion Gap 10, Estimated GFR > 60, BUN/Creatinine Ratio 5.0 L, Troponin I 0.02 Vital Signs Date Time Temp Pulse Resp B/P B/P Pulse O2 O2 Flow FiO2 Mean Ox Delivery Rate 01/18 1057 95 Room Air 01/18 0838 140/80 01/18 0838 140/80 01/18 0838 140/80 01/18 0838 140/80 01/18 0823 98.3 83 20 132/74 94 Nasal 2.0L Cannula 01/18 0726 94 Room Air 01/18 0014 98.9 69 22 132/82 94 Nasal 2.0L Cannula 01/18 0000 98.9 69 22 132/82 01/17 2341 Nasal 2.0L Cannula 01/17 2155 20 94 Room Air 01/17 2145 100 148/86 06/ 2140 20 94 Nasal 2.0L Cannula 01/17 2130 22 88 Room Air 01/17 1820 108 148/86 / 1820 108 148/86 06/03 1447 98.0 95 18 148/86 95 Room Air Recurrent syncope and falls-patient's orthostatic blood pressure check was negative. His CT head showed extensive microvascular changes but no acute stroke. CT of the cervical spine was also negative for any acute fractures. We will get physical therapy consult tomorrow to see the patient to evaluate for gait instability. We're awaiting neurology consult. His rigidity on exam is not very evident today as compared with yesterday. Patient still may have underlying orthostatic dysfunction as the cause of his recurrent syncope all it could be secondary to arrhythmia. Continue to monitor on telemetry. Patient had 10 beats of V. tach on telemetry. Tardive dyskinesia-we will get the records from [facility] and we will also start the patient on clonazepam for now to see if that helps with his symptoms. Hypokalemia-corrected.
[2017-01-18 15:30] VITALS: BP 116/60
--- NOTE | 2017-01-18 17:26 | Cons- Neurology ---
General Information and HPI Consulting Request Date of Consult: 01/18/17 Requested By: MCKENNA KATZ MD Reason for Consult: Recurrent syncope History of Present Illness: The patient is a 66 years old man w/ extenssive psych, and cardiac Hx presents with recurrent syncope and frequent/ involuntiary movement of his tongue and severe neck and headache. Headaches and neck pain has improved. He had been on [employer], zyprexa and haldol in the past. He was recently d/c from [facility] and was given dilaudid. He denies any hx of seizure, fam h/o sz, febrile sz, brain tumor or ICH. Allergies/Medications Allergies: Coded Allergies: adhesive (Intermediate, SKIN IRRITATION FROM ADHESIVE TAPE 11/01/15) clonazepam (Intermediate, AGITATION 11/01/15) fluoxetine (Intermediate, AGITATED 11/01/15) lithium (Intermediate, BODY EDEMA 11/01/15) zolpidem (Intermediate, AGITATION 11/01/15) Home Med List: Albuterol Sulfate (Proair Hfa) 0.09 MG/Actuation YENNY 2 PUFF INH PRN COPD ( Reported) Amlodipine Besylate (Amlodipine) 10 MG TAB 1 TAB PO DAILY BP (Reported) Aspirin E.c. (Ecotrin) 325 MG TAB 1 TAB PO DAILY HEART HEALTH (Reported) Atorvastatin (Atorvastatin Calcium) 10 MG TAB 1 TAB PO 1700 CHOLESTEROL ( Reported) CLOPIDOGREL BISULFATE (Clopidogrel) 75 MG TABLET 1 TAB PO DAILY Heart ( Reported) Esomeprazole (Nexium) 40 MG CAPSULE.DR 1 CAP PO DAILY GI (Reported) Fentanyl 75 MCG/HOUR PATCH.TD72 1 PAT TOP Q3D Chronic pain Fluticasone/Salmeterol (Advair 500-50 Diskus) 500 MCG-50 MCG/DOSE BLST.W.DEV 1 PUF INH BID BREATHING PROBLEMS (Reported) Furosemide 40 MG TABLET 10 MG PO DAILY WATER PILL (Reported) Metoprolol Tartrate 100 MG TABLET 1 TAB PO BID Heart (Reported) Nitroglycerin 0.4 MG TAB.SUBL 1 TAB SL AD PRN HEART (Reported) 1st sign of attack; may repeat every 5 minutes until relief; if pain persists after 3 tablets in 15 minutes, prompt medical att Pregabalin (Lyrica) 75 MG CAPSULE 1 CAP PO BID Pain Ranolazine (Ranexa) 500 MG TAB.ER.12H 1 TAB PO BID HEART (Reported) Tamsulosin HCl 0.4 MG CAP.ER.24H 1 CAP PO DAILY BPH (Reported) Trazodone HCl 50 MG TABLET 75 MG PO QPM insomnia Current Medications: Current Medications Sig/Ludivina Start time Last Medication Dose Route Stop Time Status Admin Acetaminophen 650 MG Q6P PRN 01/18 0115 AC 01/18 PO 0114 Acetaminophen 650 MG Q6P PRN 01/17 1700 DC PO Acetaminophen 1,000 MG Q8 01/17 1648 DC 01/17 IV 1820 Albuterol Sulfate 3 ML TID 01/18 1000 AC 01/18 INH 1056 Albuterol Sulfate 3 ML Q4H PRN 01/17 1615 AC INH Amlodipine Besylate 10 MG DAILY 01/17 1615 AC 01/18 PO 0838 Aspirin Buffered 325 MG DAILY 01/18 1000 AC 01/18 PO 0838 Atorvastatin Calcium 10 MG 1700 01/17 1700 AC 01/18 PO 1702 Bisacodyl 10 MG Q12P PRN 01/17 1700 AC [place] Budesonide/ 2 PUF BID 01/17 2200 AC 01/18 Formoterol Fumarate INH 0837 Clonazepam 0.5 MG DAILY 01/18 1049 AC 01/18 PO 01/25 1048 1241 Clopidogrel Bisulfate 75 MG DAILY 01/18 1000 AC 01/18 PO 0838 Docusate Sodium 100 MG DAILY NEEDED PRN 01/17 1700 AC PO Fentanyl Citrate 75 MCG Q3D 01/18 1000 AC 01/18 TOP 0837 Heparin Sodium 5,000 UNIT Q8 01/17 1411 AC 01/18 (Porcine) SC 0626 Isosorbide 60 MG DAILY 01/18 1000 AC 01/18 Mononitrate PO 0838 Methyl Salicylate 1 ELIANA 4 TIMES/DAY 01/17 1800 AC TOP Metoprolol Tartrate 100 MG BID 01/17 2200 AC 01/18 PO 0838 Nicotine 7 MG DAILY 01/18 1601 AC 01/18 TOP 1703 Nitroglycerin 0.4 MG Q 5 MINUTES X 3 DO.. 01/17 1630 AC SL Omeprazole 40 MG DAILY AC 01/18 0700 AC 01/18 PO 0625 Potassium Chloride 20 MEQ Q1 01/17 2100 DC PO 01/17 2201 Potassium Chloride 10 MEQ ONCE ONE 01/17 2100 DC 01/17 IV 01/17 2101 2258 Potassium Chloride 40 MEQ Q6H 01/17 1415 AC 01/17 Sodium Chloride 1,000 ML IV 1440 Potassium Chloride 40 MEQ DAILY 01/17 1412 AC 01/18 PO 0838 Pregabalin 150 MG BID 01/18 1232 AC 01/18 PO 1242 Senna/Docusate Sodium 1 TAB AT BEDTIME 01/17 2200 AC PO Tamsulosin HCl 0.4 MG DAILY 01/17 1619 AC 01/18 PO 0838 Tramadol HCl 50 MG ONCE ONE 01/18 0215 DC 01/18 PO 01/18 0216 0241 Trazodone HCl 75 MG AT BEDTIME NEED.. 01/18 0300 AC PO 01/19 0247 Review of Systems Review of Systems: 10 point ROS was uremarkable Past History Travel History Traveled to [place] past 21 day No Medical History Neurological: CVA, TIA, LIGHTHEADEDNESS HX EENT: hearing loss Cardiovascular: CHF, diastolic CHF, hypertension, hyperlipidemia, myocardial infarction, NSTEMI, syncope, 2 DE 2011 BOTH, 7 STENTS LEFT CHEST WALL PACEMAKER Respiratory: COPD, emphysema Gastrointestinal: NONE Hepatic: hepatitis C, HEPAC -untreated Renal: NONE Musculoskeletal: chronic back pain, disk herniation, RUPTURED DISK Psychiatric: alcohol dependence (lapse 1 day [employer]-"years sober"), anxiety, chronic pain disorder, depression, opioid dependence (prescribed), PTSD (3 yrs in [facility]) Endocrine: NONE Blood Disorders: MRSA 2003 Cancer(s): NONE PALEOLOGY PROFESSOR/Reproductive: ENLARGED PROSTATE Surgical History Surgical History: non-contributory (8 soine surgeries, last 1997) Family History Relations & Conditions If Any: BROTHER ( of [place], age 62). MOTHER ([place] at age 61). FATHER ([place] at age 50). Relation not specified for: FH: myocardial infarction Psychosocial History Where Do You Live? Home Services at Home: None Smoking Status: Current Everyday Smoker ETOH Use: alcoholic, FORMER ALCOHOLIC Illicit Drug Use: denies illicit drug use Functional Ability ADLs Independent: dressing, eating, toileting, bathing. Ambulation: independent IADLs Independent: shopping, housework, finances, food prep, telephone, transportation , medication admin. Exam & Diagnostic Data Vital Signs and I&O Vital Signs Date Time Temp Pulse Resp B/P B/P Pulse O2 O2 Flow FiO2 Mean Ox Delivery Rate 01/18 1530 98.3 66 16 116/60 94 Room Air 01/18 1057 95 Room Air 01/18 0838 140/80 01/18 0838 140/80 01/18 0838 140/80 01/18 0838 140/80 01/18 0823 98.3 83 20 132/74 94 Nasal 2.0L Cannula 01/18 0726 94 Room Air 01/18 0014 98.9 69 22 132/82 94 Nasal 2.0L Cannula / 0000 98.9 69 22 132/82 01/17 2341 Nasal 2.0L Cannula 01/17 2155 20 94 Room Air 01/17 2145 100 148/86 01/17 2140 20 94 Nasal 2.0L Cannula 01/17 2130 22 88 Room Air 01/17 1820 108 148/86 01/17 1820 108 148/86 Intake & Output 01/18 1600 01/18 0800 01/18 0000 Intake Total 600 440 Output Total 1200 Balance 600 -760 Intake, IV 200 Intake, Oral 600 240 Output, Urine 1200 Physical Exam: A&Ox 3, NAD CN 2-12 intact except for TD symptoms of lip smacking and increased oral movements normal bulk, trace cogwheeling on the right with distraction 5/5 t/o no clonus downgoing toes no dysmetroia neg margoth's intact gross sensation t/o Last 48 Hours of Lab Results: Laboratory Tests 01/18 01/18 01/17 01/17 1055 0105 1747 1747 Chemistry Sodium (137 - 145 mmol/L) 140 136 L Potassium (3.5 - 5.1 mmol/L) 4.4 3.3 L Chloride (98 - 107 mmol/L) 104 100 Carbon Dioxide (22 - 30 mmol/L) 30 26 Anion Gap (5 - 16) 7 10 BUN (9 - 20 mg/dL) 4 L 3 L Creatinine (0.7 - 1.2 mg/dL) 0.5 L 0.6 L Estimated GFR (>60 ml/min) > 60 > 60 BUN/Creatinine Ratio (7 - 25 %) 8.0 5.0 L Magnesium (1.6 - 2.3 mg/dL) 2.1 Troponin I (<0.11 ng/ml) 0.02 Cancelled 0.02 01/17 01/17 1222 1207 Chemistry Sodium (137 - 145 mmol/L) 138 Potassium (3.5 - 5.1 mmol/L) 2.8 *L Chloride (98 - 107 mmol/L) 99 Carbon Dioxide (22 - 30 mmol/L) 25 Anion Gap (5 - 16) 14 BUN (9 - 20 mg/dL) 4 L Creatinine (0.7 - 1.2 mg/dL) 0.6 L Estimated GFR (>60 ml/min) > 60 BUN/Creatinine Ratio (7 - 25 %) 6.7 L Glucose (65 - 99 mg/dL) 94 Calcium (8.4 - 10.2 mg/dL) 8.7 Magnesium (1.6 - 2.3 mg/dL) 1.9 Total Bilirubin (0.2 - 1.3 mg/dL) 0.6 AST (17 - 59 U/L) 88 H ALT (21 - 72 U/L) 69 Alkaline Phosphatase (< 127 U/L) 61 Total Protein (6.3 - 8.2 g/dL) 6.8 Albumin (3.5 - 5.0 g/dL) 3.8 Globulin (1.9 - 4.2 gm/dL) 3.0 Albumin/Globulin Ratio (1.1 - 2.2 %) 1.3 Hematology CBC w Diff NO MAN DIFF REQ WBC (4.8 - 10.8 /CUMM) 7.4 RBC (4.70 - 6.10 /CUMM) 4.03 L Hgb (14.0 - 18.0 G/DL) 11.9 L Hct (42 - 52 %) 35.8 L MCV (80.0 - 94.0 FL) 88.9 MCH (27.0 - 31.0 PG) 29.5 RDW (11.5 - 14.5 %) 15.6 H Plt Count (130 - 400 /CUMM) 273 MPV (7.4 - 10.4 FL) 6.7 L Gran % (42.2 - 75.2 %) 68.8 Lymphocytes % (20.5 - 51.1 %) 20.6 Monocytes % (1.7 - 9.3 %) 7.7 Eosinophils % (0 - 5 %) 2.2 Basophils % (0.0 - 2.0 %) 0.7 Absolute Granulocytes (1.4 - 6.5 /CUMM) 5.1 Absolute Lymphocytes (1.2 - 3.4 /CUMM) 1.5 Absolute Monocytes (0.10 - 0.60 /CUMM) 0.6 Absolute Eosinophils (0.0 - 0.7 /CUMM) 0.2 Absolute Basophils (0.0 - 0.2 /CUMM) 0.1 PUBS MCHC (33.0 - 37.0 G/DL) 33.2 Urines Urinalysis LIGHT H Urine Color (YEL,AMB,STR) YEL Urine Clarity (CLEAR) CLEAR Urine pH (5.0 - 8.0) 6.0 Ur Specific [place] (1.001 - 1.035) 1.015 Urine Protein (NEG,<30 MG/DL) TRACE H Urine Ketones (NEG) NEG Urine Nitrite (NEG) NEG Urine Bilirubin (NEG) NEG Urine Urobilinogen (0.1 - 1.0 EU/dl) 0.2 Ur Leukocyte Esterase (NEG) NEG Ur Microscopic SEDIMENT EXAMINED Urine RBC (0 - 5 /HPF) 1-3 Urine WBC (0 - 2 /HPF) 1-3 H Ur Epithelial Cells (NONE,FEW) RARE Urine Bacteria (NEG/NONE) RARE H Urine Mucus (FEW,NONE) RARE Urine Hemoglobin (NEG) NEG Urine Glucose (N MG/DL) NEG Imaging/Other Studies: CT head: unremarkable Assessment/Plan Assessment: The patient is a 66 years old man w/ extenssive psych, and cardiac Hx presents with recurrent syncope and frequent/ involuntiary movement of his tongue and severe neck and headache. Headaches and neck pain has improved. He had been on [employer], zyprexa and haldol in the past. He was recently d/c from [facility] and was given dilaudid. He denies any hx of seizure, fam h/o sz, febrile sz, brain tumor or ICH. Recurrent syncope is likely due to polypharmacy, less likely seizure or ischemia obdulio with unremarkable CT head. cnanot have mri due to pacer EEG in AM The TD symptoms are related to antipsychotic use simin with prior [employer] and zyprexa use. Less likely that this patient has parkinson. We will await psych input for TD management pt/ot eval Call with questions Recommendations: see abov Consult Acknowledgment - Thank you for your consult request.
[2017-01-19 00:48] VITALS: BP 118/60
--- NOTE | 2017-01-19 06:43 | PN- Housestaff ---
Subjective Follow-up For: Recurrent syncope Neck/head pain Tele-Events Since Last Visit: NSR, HR 60-80s Subjective: Patient seen and examined this morning. Endorses worsening in the back of head radiating down to the neck, worse with movements. Also reports dizziness and involuntary movements in the tongue and limbs occassionally. He has been walking around though. Denies any fever, chills, chest pain, palpitations, dyspnea, abdominal pain, n/v/c/d. No events reported overnight. Review of Systems Constitutional: Reports: see HPI. Objective Last 24 Hrs of Vital Signs/I&O Vital Signs Date Time Temp Pulse Resp B/P B/P Pulse O2 O2 Flow FiO2 Mean Ox Delivery Rate 01/19 0048 98.1 60 16 118/60 94 Room Air / 0000 Room Air 01/18 2001 65 116/60 01/18 1940 93 Room Air / 1530 98.3 66 16 116/60 94 Room Air / 1057 95 Room Air / 0838 140/80 /04 0838 140/80 06/04 0838 140/80 06/04 0838 140/80 Intake & Output /05 1600 /05 0800 06/05 0000 Intake Total 150 480 Output Total Balance 150 480 Intake, Oral 150 480 Physical Exam General Appearance: Alert, Oriented X3, Cooperative, No Acute Distress Other Physical Findings: Skin No Rashes, No Breakdown, No Significant Lesion Skin Temp/Moisture Exam: Warm/Dry HEENT PERRLA, MM is dry, no nysthagmus, pupils slightly constricted Neck very limited ROM , spinal bony process tenderness , paraspinal muscle tenderness Lymphatic Axillary nl, Cervical nl Cardiovascular Normal S1, Normal S2, No Murmurs Lungs Clear to Auscultation, Normal Air Movement Abdomen distended, no tenderness , hypoactive bs Neurological Strength at 5/5 X4 Ext, Normal Tone, Cranial Nerves 3-12 NL, Reflexes 2+, CN grossly noraml , no nystagmus , cogwweel rigidity Extremities Trace edema b/l, severe arthritis Vascular Normal Pulses, Pulses Symmetrical Current Medications: Current Medications Sig/Ludivina Start time Last Medication Dose Route Stop Time Status Admin Acetaminophen 650 MG Q6P PRN 01/18 0115 AC 01/19 PO 0133 Albuterol Sulfate 3 ML TID 01/18 1000 AC 01/19 INH 0752 Albuterol Sulfate 3 ML Q4H PRN 01/17 1615 AC INH Amlodipine Besylate 10 MG DAILY 01/17 1615 AC 01/18 PO 0838 Aspirin Buffered 325 MG DAILY 01/18 1000 AC 01/18 PO 0838 Atorvastatin Calcium 10 MG 1700 01/17 1700 AC 01/18 PO 1702 Bisacodyl 10 MG Q12P PRN 01/17 1700 AC [place] Budesonide/ 2 PUF BID 01/17 2200 AC 01/18 Formoterol Fumarate INH 2001 Clonazepam 0.5 MG DAILY 01/18 1049 AC 01/18 PO 01/25 1048 1241 Clopidogrel Bisulfate 75 MG DAILY 01/18 1000 AC 01/18 PO 0838 Docusate Sodium 100 MG DAILY NEEDED PRN 01/17 1700 AC PO Fentanyl Citrate 75 MCG Q3D 01/18 1000 AC 01/18 TOP 0837 Heparin Sodium 5,000 UNIT Q8 01/17 1411 AC 01/18 (Porcine) SC 0626 Isosorbide 60 MG DAILY 01/18 1000 AC 01/18 Mononitrate PO 0838 Methyl Salicylate 1 ELIANA 4 TIMES/DAY 01/17 1800 AC TOP Metoprolol Tartrate 100 MG BID 01/17 2200 AC 01/18 PO 2001 Morphine Sulfate 1 MG ONCE ONE 01/19 0515 DC 01/19 IV 01/19 0516 0524 Nicotine 7 MG DAILY 01/18 1601 AC 01/18 TOP 1703 Nitroglycerin 0.4 MG Q 5 MINUTES X 3 DO.. 01/17 1630 AC SL Omeprazole 40 MG DAILY AC 01/18 0700 AC 01/19 PO 0640 Potassium Chloride 40 MEQ Q6H 01/17 1415 AC 01/17 Sodium Chloride 1,000 ML IV 1440 Potassium Chloride 40 MEQ DAILY 01/17 1412 AC 01/18 PO 0838 Pregabalin 150 MG BID 01/18 1232 AC 01/18 PO 2004 Senna/Docusate Sodium 1 TAB AT BEDTIME 01/17 2200 AC PO Tamsulosin HCl 0.4 MG DAILY 01/17 1619 AC 01/18 PO 0838 Tramadol HCl 50 MG ONCE ONE 01/19 0215 DC 01/19 PO 01/19 0216 0215 Trazodone HCl 75 MG AT BEDTIME NEED.. 01/18 0300 DC PO 01/19 0247 Last 24 Hrs of Lab/Angel Results Last 24 Hrs of Labs/Mics: Laboratory Tests 01/18/17 1055: Anion Gap 7, Estimated GFR > 60, BUN/Creatinine Ratio 8.0, Magnesium 2.1 Assessment/Plan Assessment: 66 years old man w/ COPD (no home O2), CAD s/p IN and PCI in 2010, syncope s/p pacemaker, diastolic heart failure, CVA '05, BPH, depression with SI requiring CPS admission and chronic back pain who presents after multiple syncopal eisodes for the past 1-2 weeks. # Recurrent syncope Possible differential diagnoses include orthostatic hypotension (2/2 medication induced and/or dehydration), vasovagal (2/2 pain or stress), and less likely, neurocardiogenic. * Consider discontinuing cardiac monitoring in the absence of any arrhythmias for the past 24 hours * Vitals per protocol * Proceed with EEG today * Appreciate neuro recs # Tardive dyskinesia Patient's lip smaking with involuntary movements of the tongue, mouth and limbs are concerning for tardive dyskinesia in the context of previous use of Haldol, lithium and Zyprexa. It is also important to note the possibility of Parkinson's disease (given cogwheel rigidiity) and less likely, Lewy body dementia. * Discontinue Clonopin and start Valium for muscle spasm/pain * Continue to monitor progression of symptoms * Appreciate psych recs # Hypokalemia- resolved K on admission 2.8. Potassium repleted accordingly to keep it above 4. * BEP daily, replete as needed # Hx of COPD - stable. * TRC round the clock. * Continue Advair. #CAD- does have occasional anginal symptoms. apears stable. Plan: Continue current meds including Nitro SL 0.4 PRN, isosorbide and metoprolol. Ranexa was held. This medication has black box warning inthe setting of faint/ syncopal episodes. #CHF- HFpEF of >55%. On Lasix. has LE edema. Plan: continue Lasix. Ristrict I/O. Heart healthy diet. Daily weight. #H/O CVA/TIA ??? Plan: Continue Plavix & ASA and Atorvastatin. Plan: Continue Atorvastatin. #Chronic Pain- is Lyrica/Fentanyl Plan: Continue pain meds and monitor.avoid narcotics/hypnotics as much as possible. #BPH- on Tamsulosin. Plan: Continue Tamsulosin. #HTN- on Amlodipine & Metoprolol. BP in range. Plan: Continue Amlodipine & Metoprolol. Follow BP. #?Depression/Anxiety/?Psychosis- reaportadely patient has been off of his depression/psych/PTSD medication for the past 6 months. plan: obtain psych consult in the am. continue Trazodone 75 mg at bedtime, DNRDNI NO labs for tomorrow Problem List: 1. Cervical strain, acute 2. Recurrent falls 3. Neck pain 4. Unsteady gait 5. Tardive dyskinesia 6. CAD (coronary artery disease) 7. DNI (do not intubate) 8. DNR (do not resuscitate) 9. Depression 10. Hypertension 11. Syncope Pain Ratin Pain Location: Neck/head Pain Goal: Pain 4 or less Pain Plan: Moderate pathway Tomorrow's Labs & Rationales: BEP - electrolytes
[2017-01-19 08:00] VITALS: BP 122/60
--- NOTE | 2017-01-19 11:12 | PN- Att Addend ---
Attending MD Review Statement Attending Statement Attending MD Statement: examined this patient, discuss w/resident/PA/MINE GEOLOGIST, agreed w/resident/PA/MINE GEOLOGIST, reviewed EMR data (avail), discussed w/nursing, discussed w/ case mgmt Attending Assessment/Plan: Vital Signs Date Time Temp Pulse Resp B/P B/P Pulse O2 O2 Flow FiO2 Mean Ox Delivery Rate 01/19 1035 Room Air 2.0L 01/19 1024 Room Air 2.0L 01/19 1023 122/62 01/19 1023 122/62 01/19 1022 122/62 01/19 1022 122/62 01/19 0914 70 01/19 0800 98.0 63 20 122/60 95 Room Air / 0048 98.1 60 16 118/60 94 Room Air 01/19 0000 Room Air 01/18 2001 65 116/60 01/18 1940 93 Room Air 01/18 1530 98.3 66 16 116/60 94 Room Air Recurrent syncope and falls-patient's orthostatic blood pressure check was negative. His CT head showed extensive microvascular changes but no acute stroke. CT of the cervical spine was also negative for any acute fractures. Patient seen by neurology and they recommended getting an EEG. We will follow- up on the results of EEG. Patient seen by physical therapy and we will follow- up with the recommendations. Patient continues to have tardive dyskinesia with tongue and jaw movements, he also has a spasm in the neck and neck pain. We will DC the clonazepam and start him on Valium. I'll give him a 2 mg dose of Valium to see how he does and then put him on Valium 5 mg 3 times a day scheduled By mouth and see if it helps with spasms and tardive dyskinesia. Pt will benefit from gait therapy. Will also check CTPMP. Pt is currently on fentanyl patch for chronic back pain.
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
--- NOTE | 2017-01-19 14:56 | ELECTROENCEPHALOGRAM REPORT ---
Electroencephalogram Report Electroencephalogram Results Date of service: 01/19/17 Attending MD: GIANNA GAUTHIER,MCKENNA Mora Faceter: Sasha Davis EEG Number: [id number] Test Utilizes: 10-20 system, 21 lead 18 channel digital recording Pertinent Hx/Physical/Neuro Findings/Clin Diagnosis: Alteration in consciousness and abnormal movements, evaluation for seizures requested Inpatient Medications: Current Medications Sig/Ludivina Start time Last Medication Dose Route Stop Time Status Admin Acetaminophen 650 MG .STK-MED ONE 01/19 0127 DC PO 01/19 0128 Acetaminophen 650 MG Q6P PRN 01/18 0115 AC 01/19 PO 0850 Albuterol Sulfate 3 ML TID 01/18 1000 AC 01/19 INH 1440 Albuterol Sulfate 3 ML Q4H PRN 01/17 1615 AC INH Amlodipine Besylate 10 MG DAILY 01/17 1615 AC 01/19 PO 1023 Aspirin Buffered 325 MG DAILY 01/18 1000 AC 01/19 PO 1022 Atorvastatin Calcium 10 MG 1700 01/17 1700 AC 01/18 PO 1702 Bisacodyl 10 MG Q12P PRN 01/17 1700 AC MA Budesonide/ 2 PUF BID 01/17 2200 AC 01/19 Formoterol Fumarate INH 1024 Clonazepam 0.5 MG DAILY 01/18 1049 DC 01/18 PO 01/25 1048 1241 Clopidogrel Bisulfate 75 MG DAILY 01/18 1000 AC 01/19 PO 1023 Diazepam 2 MG ONCE ONE 01/19 1115 DC 01/19 PO 01/19 1116 1129 Diazepam 5 MG TID PRN 01/19 1018 AC PO Diazepam 5 MG TID 01/19 1000 DC PO Docusate Sodium 100 MG DAILY NEEDED PRN 01/17 1700 AC PO Fentanyl Citrate 75 MCG Q3D / 1000 AC 01/18 TOP 0837 Heparin Sodium 5,000 UNIT Q8 01/17 1411 AC 01/18 (Porcine) SC 0626 Isosorbide 60 MG DAILY 01/18 1000 AC 01/19 Mononitrate PO 1022 Magnesium Hydroxide 30 ML AT BEDTIME PRN 01/19 0900 AC PO Methyl Salicylate 1 ELIANA 4 TIMES/DAY 01/17 1800 AC 01/19 TOP 1449 Metoprolol Tartrate 100 MG BID 01/17 2200 AC 01/19 PO 1023 Morphine Sulfate 1 MG ONCE ONE 01/19 0515 DC 01/19 IV 01/19 0516 0524 Nicotine 7 MG DAILY 01/18 1601 AC 01/18 TOP 1703 Nitroglycerin 0.4 MG Q 5 MINUTES X 3 DO.. 01/17 1630 AC SL Omeprazole 40 MG DAILY AC 01/18 0700 AC 01/19 PO 0640 Potassium Chloride 40 MEQ Q6H 01/17 1415 AC 01/17 Sodium Chloride 1,000 ML IV 1440 Potassium Chloride 40 MEQ DAILY 01/17 1412 AC 01/19 PO 1023 Pregabalin 150 MG BID 01/18 1232 AC 01/19 PO 1023 Senna/Docusate Sodium 1 TAB AT BEDTIME 01/17 2200 AC PO Tamsulosin HCl 0.4 MG DAILY 01/17 1619 AC 01/19 PO 1022 Tramadol HCl 50 MG ONCE ONE 01/19 0215 DC 01/19 PO 01/19 0216 0215 Trazodone HCl 75 MG AT BEDTIME 01/19 2200 AC PO Trazodone HCl 75 MG AT BEDTIME NEED.. 01/18 0300 DC PO 01/19 0247 Interpretation: Waking background is low amplitude 8-9 Hz alpha posteriorly and centrally with low amplitude frontal beta and intermittent muscle tension and sweat artifact. Drowsiness characterized by slower generalized theta and a few K-complexes of sleep are seen. No focal, lateralized or epileptiform abnormalities. Impression: Normal in the states of brief wakefulness, drowsiness and sleep.
[2017-01-19 15:30] VITALS: BP 122/68
[2017-01-19 22:30] VITALS: BP 142/70
--- NOTE | 2017-01-20 07:11 | PN- Housestaff ---
Subjective Follow-up For: Recurrent syncope Complaints: still feels dizziness when he changes the position Subjective: Patient seen and examined at the bedside. He was complaining of neck pain, but it was better than before. He is complaining of dizziness, especially when changing the position. He denies any headache, chest pain, palpitation, shortness of breath. He was complaining of episodes of memory loss and hallucination. He told that he sees person who was not there. Review of Systems Constitutional: Reports: no symptoms, weakness. Cardiovascular: Denies: chest pain, orthopena, palpitations. Respiratory: Denies: cough, short of breath. Gastrointestinal: Denies: abdominal pain, bloating, constipation. Genitourinary: Reports: frequency. Musculoskeletal: Reports: neck pain. Objective Last 24 Hrs of Vital Signs/I&O Vital Signs Date Time Temp Pulse Resp B/P B/P Pulse O2 O2 Flow FiO2 Mean Ox Delivery Rate 01/19 2230 98.1 82 18 142/70 95 Room Air 06/05 1900 94 Room Air /05 1800 80 06/05 1724 70 06/05 1542 72 06/05 1530 98.0 69 16 122/68 93 Room Air 06/05 1441 96 Room Air Room Air 06/05 1200 74 06/05 1035 Room Air 2.0L /05 1024 Room Air 2.0L 06/05 1023 122/62 06/05 1023 122/62 06/05 1022 122/62 06/05 1022 122/62 06/05 1000 70 06/05 0914 70 06/05 0800 98.0 63 20 122/60 95 Room Air Intake & Output 06 0800 06/06 0000 /05 1600 Intake Total 400 800 400 Output Total 275 Balance 125 800 400 Intake, Oral 400 800 400 Output, Urine 275 Patient 99.053 kg Weight Weight Chair scale Measurement Method Physical Exam General Appearance: Alert, Oriented X3, Cooperative, No Acute Distress Cardiovascular: Normal S1, Normal S2 Lungs: left lower lobe. Mild crackles Abdomen: Soft, No Tenderness Neurological: Normal Gait, Normal Speech Extremities: No Clubbing, No Cyanosis, No Edema Vascular: Normal Pulses, Pulses Symmetrical Assessment/Plan Assessment: 66 years old man w/ COPD (no home O2), CAD s/p CO and PCI in 2010, syncope s/p pacemaker, diastolic heart failure, CVA '05, BPH, depression with SI requiring CPS admission and chronic back pain who presents after multiple syncopal eisodes for the past 1-2 weeks. Vital signs -temperature 98.1, pulse 82, respiratory 18, blood pressure 142/70, SPO2 95% on room air Plan - Discharge today # Recurrent syncope Possible differential diagnoses include orthostatic hypotension (2/2 medication induced and/or dehydration), vasovagal (2/2 pain or stress), and less likely, neurocardiogenic. EKG did not showed any activities. Advised to follow-up with urologist as an outpatient. # Tardive dyskinesia Patient's lip smaking with involuntary movements of the tongue, mouth and limbs are concerning for tardive dyskinesia in the context of previous use of Haldol, lithium and Zyprexa. It is also important to note the possibility of Parkinson's disease (given cogwheel rigidiity) and less likely, Lewy body dementia. * Discontinue Clonopin and start Valium for muscle spasm/pain and discharged on diazepam 2 mgs TID * Continue to monitor progression of symptoms * Advised to follow-up with [facility]. # Hypokalemia- resolved K on admission 2.8. Potassium repleted accordingly to keep it above 4. # Hx of COPD - stable. * TRC round the clock. * Continue Advair. #CAD- does have occasional anginal symptoms. apears stable. Plan: Continue current meds including Nitro SL 0.4 PRN, isosorbide and metoprolol. Ranexa was held. This medication has black box warning in the setting of faint/ syncopal episodes. #CHF- HFpEF of >55%. On Lasix. has LE edema. Plan: continue Lasix. Ristrict I/O. Heart healthy diet. Daily weight. #H/O CVA/TIA ??? * Continue Plavix & ASA and Atorvastatin. * Continue Atorvastatin. #Chronic Pain- is Lyrica/Fentanyl * Continue pain meds and monitor.avoid narcotics/hypnotics as much as possible. #BPH * Continue Tamsulosin. #HTN * Continue Amlodipine & Metoprolol. Follow BP. Depression/Anxiety/?Psychosis- reaportadely patient has been off of his depression/psych/PTSD medication for the past 6 months. * continue Trazodone 75 mg at bedtime, [id number] Problem List: 1. Tardive dyskinesia Pain Ratin Pain Location: Neck Pain Goal: Remain pain free Pain Plan: [id number] Tomorrow's Labs & Rationales: Not required DVT/Prophylaxis: mechanical, pharmacological Not required DVT/Prophylaxis: mechanical, pharmacological
[2017-01-20 08:00] VITALS: BP 130/72
--- NOTE | 2017-01-20 08:53 | PN- Student ---
ADARSH ALVAREZ 01/20/17 0851: Subjective Subjective: Patient was seen and examined this morning. He was resting comfortably in his bed and eating breakfast. He asked if he knew where he would be going for short term rehabilitation where I explained to him that will be dealt by case management. Patient reports having only 1 bowel movement since Thursday and he is not constipated at baseline. Patient says he is hearing intermittent "humming" in his head and he also reports hallucinations of his pitbull. No other overnight events. Patient denies any chest pain, palpitations, nausea, vomiting, diarrhea, abdominal pain, headache, fever, numbness or tingling. Objective Objective: Vital Signs Date Time Temp Pulse Resp B/P B/P Pulse O2 O2 Flow FiO2 Mean Ox Delivery Rate 01/20 0802 96 Room Air Room Air 01/19 2230 98.1 82 18 142/70 95 Room Air 01/19 1900 94 Room Air 01/19 1800 80 /05 1724 70 / 1542 72 /05 1530 98.0 69 16 122/68 93 Room Air 01/19 1441 96 Room Air Room Air 01/19 1200 74 05 1035 Room Air 2.0L 01/19 1024 Room Air 2.0L 01/19 1023 122/62 0605 1023 122/62 0605 1022 122/62 01/19 1022 122/62 01/19 1000 70 /05 0914 70 Intake & Output 01/20 1600 06 0800 06 0000 Intake Total 400 800 Output Total 275 Balance 125 800 Intake, Oral 400 800 Output, Urine 275 Physical Exam: General- Well appeared, well nourished elderly male in no acute distress HEENT- NCAT, PERRL, EOMI Cardio- Normal S1 & S2 with no M/G/R Respiratory- CTA bilaterally Abdomen- soft, distended abdomen with normal/hypoactive bowel sounds Neuro- normal tone, unable to assess gait, increased oral movements and lip smacking EEG results- No focal, lateralized or epileptiform abnormalities. Normal in the states of brief wakefulness, drowsiness and sleep. Results Results: Laboratory Tests 01/18/17 1055: Anion Gap 7, Estimated GFR > 60, BUN/Creatinine Ratio 8.0, Magnesium 2.1 01/18/17 0105: Troponin I 0.02 01/17/171746: Troponin I Cancelled 01/17/171746: Anion Gap 10, Estimated GFR > 60, BUN/Creatinine Ratio 5.0 L, Troponin I 0.02 Assessment/Plan Assessment: 66 [id number] w/ COPD (not on home oxygen), coronary artery disease s/p NM and PCI in 2010, syncope s/p pacemaker, diastolic heart failure, CVA '05, BPH, depression with SI requiring CPS admission and chronic back pain who presents after multiple syncopal eisodes for the past 1-2 weeks. Recurrent syncope Possible differential diagnoses include orthostatic hypotension (2/2 medication induced and/or dehydration), vasovagal (2/2 pain or stress), and less likely, cardiogenic. -Othostatic Vitals per protocol Tardive dyskinesia Patient's lip smaking with involuntary movements of the tongue, mouth and limbs are concerning for tardive dyskinesia in the context of previous use of Haldol, lithium and Zyprexa. -Continue Valium for muscle spasm/pain -Patient explicity states he does not want to be on any anti-psychotics. Neuro consult for outpatient TD treatment CAD- does have occasional anginal symptoms. -Continue current meds including Nitro SL 0.4 PRN, isosorbide and metoprolol. CHF- HFpEF of >55% with LE edema. -continue Lasix. Ristrict I/O. Heart healthy diet. Daily weight. Chronic Pain- on Lyrica/Fentanyl -Continue pain meds and monitor. -Trazadone 75mg once at bedtime to help with pain and falling asleep HTN- on Amlodipine & Metoprolol. -Continue Amlodipine & Metoprolol. Follow BP (currently stable) Code statys: DNR/DNI
--- NOTE | 2017-01-20 10:51 | Patient Discharge Instructions ---
Discharge Instructions General Discharge Information You were seen/treated for: recurrent episodes of syncope secondary to postural hypotension. Abnormal facial and tongue movements called tardive dyskinesias secondary to antipsychotic medication Special Instructions: please follow up with your PCP with in a week of discharge. Please take the medication as advised. Take all fall precautions. Diet Continue normal diet: No Recommended Diet: Heart Healthy, fluid restriction Activity Activity Self Limited: No (as tolerated) Acute Coronary Syndrome Inclusion Criteria At DC or during hospital stay patient has or had the following: ACS DIAGNOSIS No Discharge Core Measures Meds if any: Prescribed or Continued at Discharge Meds if any: NOT Prescribed or Continued at Discharge Congestive Heart Failure Inclusion Criteria At DC or during hospital stay patient has or had the following: CHF DIAGNOSIS No Discharge Core Measures Meds if any: Prescribed or Continued at Discharge Meds if any: NOT Prescribed or Continued at Discharge Cerebrovascular accident Inclusion Criteria At DC or during hospital stay patient has or had the following: CVA/TIA Diagnosis No Discharge Core Measures Meds if any: Prescribed or Continued at Discharge Meds if any: NOT Prescribed or Continued at Discharge Venous thromboembolism Inclusion Criteria VTE Diagnosis No VTE Type NONE VTE Confirmed by (Test) NONE Discharge Core Measures - Per Current guidelines, there needs to be overlap - treatment for the first 5 days of Warfarin therapy. - If discharged on Warfarin prior to 5 days of - overlap therapy, the patient will need to be - assessed for post discharge needs including - *Post discharge parental anticoagulation - *Warfarin and/or parental anticoagulation education - *Follow up date to check INR post discharge At least 5 days overlap therapy as Inpatient No Meds if any: Prescribed or Continued at Discharge Warfarin No Note: Overlap Therapy is Warfarin and Anticoagulant Meds if any: NOT Prescribed or Continued at Discharge
[2017-01-20] MEDS ORDERED: KLONOPIN0.5 M1 PO ×3 (11:14→16:01)
[2017-01-20] MEDS ORDERED: LYRICA150 M1 PO ×4 (11:25→16:07)
[2017-01-20] MEDS ORDERED: LYRICA75 M1 PO ×2 (11:34→11:35)
[2017-01-20] MEDS ORDERED: FENTANYL1 EAC4 TOP (11:40)
--- NOTE | 2017-01-20 12:47 | PN- Att Addend ---
Attending MD Review Statement Attending Statement Attending MD Statement: examined this patient, discuss w/resident/PA/FRONT END ENGINEER, agreed w/resident/PA/FRONT END ENGINEER, reviewed EMR data (avail), discussed w/nursing, discussed w/ case mgmt Attending Assessment/Plan: Patient seen and examined at bedside. Discussed with patient the care plan. Next Patient with recurrent syncope admitted with falls at home. Orthostatic blood pressure check done again today before discharge was negative. Telemetry monitoring did not show any arrhythmias. Patient also showing no signs of autonomic dysfunction. Patient has chronic low back pain for which he has been on fentanyl for a long time along with Lyrica. We will continue those. Patient also has tardive dyskinesia secondary to use of antipsychotic medications, we have started him on clonazepam 0.5 mg daily for now which will need to be titrated up as he follows up with his PCP. Patient being discharged home today in stable condition.
[2017-01-20] MEDS ORDERED: TRAZODONE HCL50 M1 PO ×2 (15:48→16:07)
[2017-01-20 16:00] VITALS: BP 118/80
[2017-01-20] MEDS ORDERED: VALIUM2 M1 PO (17:08)
--- NOTE | 2017-01-20 21:38 | Discharge Summary ---
Visit Information Visit Dates Admission Date: 01/17/17 Discharge Date: 01/20/17 Hospital Course Course Attending Physician: MCKENNA KATZ MD Primary Care Physician: ANMOL GAUTHIER,[facility] Course: 66 years old man w/ COPD (no home O2), CAD s/p [place] and PCI in 2010, syncope s/p pacemaker, diastolic heart failure, CVA '05, BPH, depression with SI requiring CPS admission and chronic back pain who presents after multiple syncopal eisodes for 1-2 weeks. Vital signs at the time of admission -temperature 98.3, pulse 89, respiratory rate 18, blood pressure 142/77, SPO2 100% on room air, Orthostatic blood pressure-150/84 on lying, 144/82 on sitting, 138/86,on standing Tardive dyskinesia secondary to antipsychotic medication On physical examination,he was having tremors at rest and on intention along with cogwheel rigidity.He did not had orthostatic hypotension.Blood workup showed low potassium -2.8, which was supplemented with IV pottassium. We admitted the patient into telemetry floor, did CT scan of the head and neck and took neurology consult.CT scan of head showed chronic microvascular changes, without any evidence of acute ischemia or hemorrhage, and CT scan of neck does not show any signs of fracture or dislocation. Neurologist advised for EEG, which did not showed any epileptiform abnormalities.We did physical therapy evaluation to know about his gait instability, and they advised for strengthening exercise 4-5 times per week. We started patient on clonazepam.Clonazepam didnot helped with tardive dyskinesia,though rigidity decreased. Patient continued to have neck pain and jaw movements, so we decided to keep him on tablet Valium 5 milligrams 3 times a day. We also checked CTPMP. We discharged patient on tablet Valium with advised to follow-up with PCP/neurologist/if needed psychiatrist for further evaluation and management. Allergies: Coded Allergies: adhesive (Intermediate, SKIN IRRITATION FROM ADHESIVE TAPE 11/01/15) clonazepam (Intermediate, AGITATION 11/01/15) fluoxetine (Intermediate, AGITATED 11/01/15) lithium (Intermediate, BODY EDEMA 11/01/15) zolpidem (Intermediate, AGITATION 11/01/15) Disposition Summary Disposition Principal Diagnosis: Tardive dyskinesia Additional Diagnosis: CAD s/p [place] and PCI in 2010, Syncope s/p pacemaker, Diastolic heart failure, History of CVA '05, COPD (no home O2), BPH, Depression with SI requiring CPS admission Chronic back pain Discharge Disposition: home or self care Discharge Instructions General Discharge Information Code Status: Do Not Resucitate/Intubat Patient's Diet: Heart healthy diet Patient's Activity: As tolerated, take all fall precautions Follow-Up Instructions/Appts: Please follow-up with your PCP within a week of discharge Advised to follow-up neurologist for further management of the dementia. Advised to follow-up [place] outpatient psychiatry for further management of depression. Medications at Discharge Discharge Medications: Stop taking the following medications: Budesonide/Formoterol Fumara (Symbicort 160-4.5 Mcg Inhaler) 160 MCG/4.5 MCG PUF Inhale through mouth TWICE DAILY Aripiprazole (Abilify) 15 MG TAB ORAL DAILY Days = 28 Oxycodone HCl/Acetaminophen (Percocet 5-325 MG Tablet) 5 MG-325 MG TABLET ORAL Q6H as needed for PAIN Qty = 10 Pregabalin (Lyrica) 75 MG CAPSULE ORAL TWICE DAILY Continue taking these medications: CLOPIDOGREL BISULFATE (Clopidogrel) 75 MG TABLET 1 Tablet ORAL DAILY Qty = 30 Comments: PER PT LAST GIVEN: 11/04/15 @ 1000 Metoprolol Tartrate (Metoprolol Tartrate) 100 MG TABLET 1 Tablet ORAL TWICE DAILY Qty = 60 Comments: PER PT LAST GIVEN: 11/04/15 @ 1000 Aspirin E.c. (Ecotrin) 325 MG TAB 1 Tablet ORAL DAILY Comments: PER PT LAST GIVEN: 11/03/17 @ 1000 Albuterol Sulfate (Proair Hfa) 0.09 MG/Actuation YENNY 2 PUFF Inhale through mouth as needed for COPD Comments: PER PT Amlodipine Besylate (Amlodipine) 10 MG TAB 1 Tablet ORAL DAILY Qty = 30 Comments: PER PT MED IS ON HOLD UNLESS BP GOES TOO HIGH LAST GIVEN: 11/04/15 @ 1000 Atorvastatin (Atorvastatin Calcium) 10 MG TAB 1 Tablet ORAL 5 PM Comments: LAST GIVEN: 11/03/15 @ 1700 Nitroglycerin (Nitroglycerin) 0.4 MG TAB.SUBL 1 Tablet SUBLINGUAL As Directed as needed for HEART Qty = 25 Instructions: 1st sign of attack; may repeat every 5 minutes until relief; if pain persists after 3 tablets in 15 minutes, prompt medical att Comments: DID NOT RECEIVE IN HOSPITAL Tamsulosin HCl (Tamsulosin HCl) 0.4 MG CAP.ER.24H 1 Capsule ORAL DAILY Qty = 90 Comments: Last Taken: 01/20/17 Time: 10:30 AM Furosemide (Furosemide) 40 MG TABLET 10 Milligram ORAL DAILY Qty = 180 Comments: DID NOT RECEIVE IN HOSPITAL Fluticasone/Salmeterol (Advair 500-50 Diskus) 500 MCG-50 MCG/DOSE BLST.W.DEV 1 Puff Inhale through mouth TWICE DAILY Comments: Last Taken: 01/20/17 Time: 10:30 AM Ranolazine (Ranexa) 500 MG TAB.ER.12H 1 Tablet ORAL TWICE DAILY Qty = 60 Comments: DID NOT RECEIVE IN HOSPITAL Esomeprazole (Nexium) 40 MG CAPSULE.DR 1 Capsule ORAL DAILY Qty = 90 Comments: RECEIVED PRILOSEC 01/20/17 AT 6:40 AM Fentanyl (Fentanyl) 75 MCG/HOUR PATCH.TD72 1 Patch On the skin Every 3 days Qty = 10 Comments: Last Taken: 01/18/17 Time: 8:30 AM Start taking the following new medications: Pregabalin (Lyrica) 150 MG CAPSULE 1 Capsule ORAL TWICE DAILY Qty = 60 No Refills Comments: Last Taken: 01/20/17 Time: 10:30 AM Trazodone HCl (Trazodone HCl) 50 MG TABLET 75 Milligram ORAL Every night Qty = 60 No Refills Comments: Last Taken: 01/19/17 Time: 10:00 PM Diazepam (Valium) 2 MG TABLET 1 Tablet ORAL THREE TIMES DAILY Qty = 30 No Refills Copies To: ANMOL GAUTHIER,MARCIE Attending MD Review Statement Documenting Attending: GIANNA GAUTHIER,MCKENNA Mora
== END 2017-01-20 17:55 | DRG 312 ==
LOC: ERH 11:13 → ERHI 13:12 → 1NO 13:12 → ENRESERV 13:54 → ENTRNSPT 14:46 → 1NO 15:31 → CMPTRNSPT 01-18 06:54 → 1NO 01-18 08:59
PROVIDERS: Internal Medicine; ADMIT Internal Medicine
DX: R55 Syncope and collapse (principal); I47.2 Ventricular tachycardia; I11.0 Hypertensive heart disease with heart failure; I50.32 Chronic diastolic (congestive) heart failure; J44.9 Chronic obstructive pulmonary disease, unspecified; Z86.73 Personal history of transient ischemic attack (TIA), and cerebral infarction without residual deficits; I25.2 Old myocardial infarction; Z95.0 Presence of cardiac pacemaker; N40.0 Benign prostatic hyperplasia without lower urinary tract symptoms; B18.2 Chronic viral hepatitis C; E87.6 Hypokalemia; I25.10 Atherosclerotic heart disease of native coronary artery without angina pectoris; G89.4 Chronic pain syndrome; Z66 Do not resuscitate; G24.01 Drug induced subacute dyskinesia; T43.595A Adverse effect of other antipsychotics and neuroleptics, initial encounter; F32.9 Major depressive disorder, single episode, unspecified; M54.5 Low back pain; E78.5 Hyperlipidemia, unspecified; K21.9 Gastro-esophageal reflux disease without esophagitis
CPT/HCPCS: 1NP; 72050; 81001; 82436; 93005; 93010; 95816; 96374; 97110-GO; 97116-GO; 97116-GP; 97162-GP; G8978-GP; G8979-GP; J0131; J1644; J3490